=== PATIENT | female | born 1990 | race Caucasian/White ===

== ENCOUNTER 2019-07-04 11:46 | Emergency (ER) | payer OTHER ==
[2019-07-04 12:04] VITALS: BMI 36.3
--- NOTE | 2019-07-04 12:09 | PDOC ---
History of Present Illness - General Chief Complaint: Pain Stated Complaint: R/O ECTOPIC PREGANCY Time Seen by Provider: 07/04/19 12:09 - History of Present Illness Initial Comments: HPI: 28yo A0 currently five and a half weeks with no reported PMH sent by urgent care for possible ectopic . Patient reports mild lower abdominal discomfort and vaginal spotting. She was evaluated at an Urgent Care center yesterday and discharged before the radiology report returned. In the morning, patient was notified of the possibility of ectopic seen on ultrasound and instructed to present to the ED. Of note, she resides in [place] and is here to visit family. Never had complications with before. Denies urinary symptoms. No fevers, chills, chest pain, or shortness of breath. 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: in [place] ROS: Constitutional: no fever, no chills HEENT: no throat pain, no dysphagia Cardiovascular: no chest pain, no palpitations Respiratory: no cough, no shortness of breath Gastrointestinal: +abdominal pain, no vomiting Genitourinary: no dysuria, +vaginal bleeding Musculoskeletal: no myalgia, no arthralgia Skin: no rash, no itching Neurologic: no headache, no weakness PE: General: Awake, alert, and fully oriented, in no acute distress Head: No signs of trauma Eyes: EOMI, sclera anicteric ENT: Moist mucus membranes Neck: Normal ROM, supple Lungs: Lungs clear, Normal breath sounds Cardio: Regular rhythm, S1 and S2 present Abdomen: Soft, nontender. No guarding, no rebound, no masses Extremities: Normal range of motion, Distal pulses present SKIN: Warm, Dry, normal turgor Neurologic: Cranial nerves II through XII grossly intact. Normal speech Pelvic: External genitalia without erythema, exudate or discharge. Vaginal vault is with small amount of blood. Cervix is of normal color without lesion. The os is closed. Uterus is noted to be of appropriate size and nontender. No cervical motion tenderness is seen. No masses are palpated. The adnexa is with mild tenderness on the right. ED Course/MDM: DDX including but not limited to threatened , ectopic , subchorionic hemorrhage, UTI, cervical/vaginal lesion, thrombocytopenia Labs Patient declined pain medication 07/04/19 12:[address] Berg at [facility] Yesterday, B-hcg 646 Rh+ No definite intruterine gestation on US Thick cyst over the right ovary with surroudnding vascularity and may represent blood ectopic cannot be excluded 07/04/19 12:33 Received faxed reports from [facility] urgent care: "Pelvic sonogram with transvaginal imaging The uterus is anteverted measuring 8.4cm. IT is homogenous in echogenicity and no focal fibroids are appreciated. The endometrium is linear measuring 11mm. No intrauterine is identified at this time. There may be a small clot noted within the fundal aspect of the endometrium measuring 1cm The right ovary measures 4 x 2.2 x 3cm. There are small follicles noted. There is a thick-walled possible corpus luteal cyst measuring 2.5cm with surrounding vascularity. There is echogenic fluid around the ovary which may represent blood. The left ovary measures 2 x 2.5 x 2.2cm. Follicles are identified but no cysts or masses and no abnormal vascularilty is appreciated There is moderate amount of echogenic fluid surround the right ovary which is suggestive of hemorrhage Impression: There is no definite intrauterine gestation. there is a thick walled cyst identified exophytic from the right ovary with surrounding vascularilty and echogenic fluid which may represent blood. An ectopic cannot be excluded. There is a postive beta hcg value at this time of 646. Correlation with beta hcg values and close interval follow-up is suggested. " 07/04/19 13:01 CBC WBC 7.2 K/mm3 (4.0-10.0) 07/04/19 12:28 RBC 4.42 M/mm3 (3.60-5.2) 07/04/19 12:28 Hgb 12.8 GM/dL (10.7-15.3) 07/04/19 12:28 Hct 38.0 % (32.4-45.2) 07/04/19 12:28 MCV 85.9 fl (80-96) 07/04/19 12:28 MCH 28.9 pg (25.7-33.7) 07/04/19 12:28 MCHC 33.6 g/dl (32.0-36.0) 07/04/19 12:28 RDW 13.6 % (11.6-15.6) 07/04/19 12:28 Plt Count 263 K/MM3 (134-434) 07/04/19 12:28 MPV 9.5 fl (7.5-11.1) 07/04/19 12:28 Absolute Neuts (auto) 4.6 K/mm3 (1.5-8.0) 07/04/19 12:28 Neutrophils % 64.4 % (42.8-82.8) 07/04/19 12:28 Lymphocytes % 24.4 % (8-40) 07/04/19 12:28 Monocytes % 9.7 % (3.8-10.2) 07/04/19 12:28 Eosinophils % 1.0 % (0-4.5) 07/04/19 12:28 Basophils % 0.5 % (0-2.0) 07/04/19 12:28 Nucleated RBC % 0 % (0-0) 07/04/19 12:28 No leukocytosis Hgb normal CMP Sodium 139 mmol/L (136-145) 07/04/19 12:28 Potassium 3.9 mmol/L (3.5-5.1) 07/04/19 12:28 Chloride 106 mmol/L (98-107) 07/04/19 12:28 Carbon Dioxide 27 mmol/L (21-32) 07/04/19 12:28 Anion Gap 7 MMOL/L (8-16) L 07/04/19 12:28 BUN 8.9 mg/dL (7-18) 07/04/19 12:28 Creatinine 0.6 mg/dL (0.55-1.3) 07/04/19 12:28 Est GFR (CKD-EPI)AfAm 141.76 07/04/19 12:28 Est GFR (CKD-EPI)NonAf 122.31 07/04/19 12:28 Random Glucose 91 mg/dL (74-106) 07/04/19 12:28 Calcium 9.1 mg/dL (8.5-10.1) 07/04/19 12:28 Total Bilirubin 0.3 mg/dL (0.2-1) 07/04/19 12:28 AST 15 U/L (15-37) 07/04/19 12:28 ALT 22 U/L (13-61) 07/04/19 12:28 Alkaline Phosphatase 71 U/L (45-117) 07/04/19 12:28 Total Protein 7.8 g/dl (6.4-8.2) 07/04/19 12:28 Albumin 4.1 g/dl (3.4-5.0) 07/04/19 12:28 Beta HCG, Quant 547.7 mIU/ml 07/04/19 12:28 Electrolytes unremarkable Cr normal No transaminitis B-hcg is 547.7 which is lower than yesterday's value raising suspicion for ectopic vs miscarriage Pending US report 07/04/19 15:44 TVUS as reported by radiology: " EXAM#: TYPE/EXAM: RESULT: [id number] US/TRANSVAGINAL US PREG Transvaginal obstetrical ultrasound Clinical information given: ? ectopic on ultrasound, beta-hCG 646 The exam was performed utilizing transvaginal and transabdominal scanning. No prior imaging studies are available at this facility for direct comparison. An approximately 2.4 x 2 x 1.7 cm spherical structure is seen within the right adnexa interposed between the ovary and uterus suggestive of an ectopic . A small central fluid center is seen within this structure possibly representing a yolk sac. No embryonic pole is visualized. No definite intrauterine is seen. A 0.4 cm hypoechoic fluid structure containing internal debris is noted within the endometrial canal possibly representing a pseudogestational sac associated with ectopic and less likely a true gestational sac with internal debris ( given findings described within the right adnexa). The ovaries appear unremarkable demonstrating several subcentimeter follicles bilaterally. No Doppler evidence of ovarian torsion, sensitivity 70%. There is no definite free intraperitoneal fluid within the visualized lower pelvis. Impression: Probable right adnexal ectopic as noted above. Correlate with the results of prior imaging studies if available from a different facility. Reported By: Jonatan Aguero MD 07/04/19 1611 " 07/04/19 16:[address] Chase, who is continuous miner operator, 07/04/19 16:20 Dr. Chase evaluated the patient. Medical management is recommended. Per her size, patient to be given 100mg methotrexate; order verified with pharmacy Strict return precautions as initiation of treatment does not preclude ectopic rupture Per Dr. Chase's, B-hcg to be checked in 4 days at this ED (or with patient 's own provider in [place] if she heads home) to ensure it is appropriately downtrending. Dr. Chase recommended ED evaluation rather than clinic presentation 07/04/19 17:10 Patient given methotrexate Vital Signs Temperature 99 F 07/04/19 18:31 Pulse Rate 97 H 07/04/19 18:31 Respiratory Rate 18 07/04/19 18:31 Blood Pressure 111/68 07/04/19 18:31 O2 Sat by Pulse Oximetry (%) 97 07/04/19 18:31 VS remain stable Counseled tylenol/motrin for pain Patient opted to stay in town with family instead of returning home to [place] Given copies of all laboratory and imaging reports to have on hand in the event she decides to leave this area To follow up in the ED with repeat b-hcg value in four days (Sat/Sun) Given strict return precautions Stable for discharge Past History - Past Medical History Allergies/Adverse Reactions: Allergies Allergy/AdvReac Type Severity Reaction Status Date / Time No Known Allergies Allergy Verified 07/04/19 12:09 CVA: No COPD: No CHF: No DVT: No Diabetes: No - Immunization History Immunization Up to Date: Yes - Psycho Social/Smoking Cessation Hx Smoking History: Never smoked Hx Alcohol Use: No Drug/Substance Use Hx: No *Physical Exam - Vital Signs Last Vital Signs Temp Pulse Resp BP Pulse Ox 98.5 F 98 H 18 137/68 99 07/04/19 12:01 07/04/19 12:01 07/04/19 12:01 07/04/19 12:01 07/04/19 12:01 ED Treatment Course - LABORATORY CBC & Chemistry Diagram: 07/04/19 12:28 07/04/19 12:28 Discharge - Discharge Information Problems reviewed: Yes Clinical Impression/Diagnosis: Ectopic of right ovary Condition: Stable Disposition: HOME - Follow up/Referral - Patient Discharge Instructions Patient Printed Discharge Instructions: DI for Ectopic Additional Instructions: You came into the emergency department for abdominal pain and vaginal bleeding during . Your workup indicated an ectopic for which we consulted the on-call poultry husbandry worker. You were given a medication called methotrexate for treatment. Follow up in four days (Sat/Sun) for repeat b-hcg testing. If you cannot be seen by your provider, please return to the emergency department. Limit your activities. Refrain from heavy exertion. Pelvic rest is advised. Do not engage in sexual intercourse until you are cleared by your physician. You may use over the counter medications as needed for pain at home. 650-1000mg acetaminophen (Tylenol) or 600mg ibuprofen (Motrin or Advil) can be used every 6 -8 hours. If needed for continued pain, these medications may be alternated every 3-4 hours. For example, if you take ibuprofen at 9am, you may take acetaminophen at noon, ibuprofen at 3pm, etc. Return to the Emergency Department if you experience: -heavy bleeding -severe pain -lightheadedness -shortness of breath -high fever -any other concerning symptoms - Post Discharge Activity
[2019-07-04 12:45] LABS: BASO % 0.5 % (0-2.0); HEMOGLOBIN 12.8 GM/dL (10.7-15.3); LYMPH % 24.4 % (8-40); MCH 28.9 pg (25.7-33.7); MCHC 33.6 g/dl (32.0-36.0); MEAN CELL VOLUME 85.9 fl (80-96); MEAN PLT VOLUME 9.5 fl (7.5-11.1); MONO % 9.7 % (3.8-10.2); NEUT % 64.4 % (42.8-82.8); PLATELET COUNT 263 K/MM3 (134-434); RBC 4.42 M/mm3 (3.60-5.2); RDW 13.6 % (11.6-15.6); WHITE BLOOD COUNT 7.2 K/mm3 (4.0-10.0)
[2019-07-04 12:59] LABS: INR 0.98 (0.83-1.09); PROTHROMBIN TIME (PATIENT) 11.6 SEC (9.7-13.0)
[2019-07-04 13:01] LABS: ACTIVATED PTT 33.2 SECONDS (25.2-36.5)
--- NOTE | 2019-07-04 13:01 | PDOC ---
Attending Attestation - Resident Resident Name: Shelly Zarate - ED Attending Attestation I have performed the following: I have examined & evaluated the patient, The case was reviewed & discussed with the resident, I agree w/resident's findings & plan, Exceptions are as noted - HPI HPI: 07/04/19 16:18 28yo A0 currently five and a half weeks sent by urgent care for possible ectopic . Patient reports mild lower abdominal discomfort and vaginal spotting. - Physicial Exam PE: 07/04/19 18:07 Vitals: Triage Vital signs reviewed General Appearance: No acute distress, well nourished well developed, Head: Atraumatic, Abdomen no rebound no guarding no tenderness to palpation Extremities: Full range of motion to all extremities, no cyanosis, clubbing, or edema Skin: Warm and dry, no rashes or lesions, no rash, no petechiae Psych: Normal mood, normal affect - Medical Decision Making 07/04/19 18:07 28 years old sent to ED to rule out ectopic ultrasound demonstrates ectopic SPECIMEN ACCESSIONER consulted recommends methotrexate dose given by SPECIMEN ACCESSIONER Dr. Jaja Dugan patient is instructed to follow-up in 4 days for repeat Very strict ectopic precautions discussed with patient Findings, the need for follow-up and strict return instructions discussed with patient.
[2019-07-04 13:14] LABS: ALBUMIN 4.1 g/dl (3.4-5.0); BILIRUBIN,TOTAL 0.3 mg/dL (0.2-1); BLOOD UREA NITROGEN 8.9 mg/dL (7-18); CALCIUM 9.1 mg/dL (8.5-10.1); CREATININE 0.6 mg/dL (0.55-1.3); POTASSIUM 3.9 mmol/L (3.5-5.1); TOT PROT 7.8 g/dl (6.4-8.2)
[2019-07-04 13:42] LABS: EPI CELLS 5.3 /HPF (0-5/HPF); HYALINE CASTS 7 /lpf (0-8); PH,URINE 5.5 (5.0-8.0); URINE APPEARANCE CLOUDY; URINE BACTERIA 77.4 /hpf (NEGATIVE); URINE BILIRUBIN NEGATIVE (NEGATIVE); URINE COLOR YELLOW; URINE GLUCOSE (UA) NEGATIVE (NEGATIVE); URINE KETONE NEGATIVE (NEGATIVE); URINE LEUK ESTERASE TRACE (NEGATIVE); URINE NITRITE NEGATIVE (NEGATIVE); URINE PROTEIN NEGATIVE (NEGATIVE); URINE RBC 3 /hpf (0-4); URINE WBC 2 /hpf (0-5)
[2019-07-04] MEDS ORDERED: METHOTREXATE SODIUM/PF 25 MG/ML VIAL IM ONE (17:05)
--- NOTE | 2019-07-04 17:22 | CON.OBG ---
Consult Consult Specialty:: residential nurse Referred by:: Resident Tessa Bravo/ attending Claribel Amaya MD Reason for Consultation:: posible ectopic - History of Present Illness Chief Complaint: 28 yrs , LMP 05/24/19, 5.4 weeks gestation , was referred from [facility] for ectopic pregn . History of Present Illness: pt had pregn test done at home it was positive. she started experiencing spotting since 06/27/19 , bleeding increased 07/03/19 , cramps likie period sometimes & backache , hence she went to [facility] on 07/03/19 . she was sent home without knowing thr us report , she was called 12 AM to onform her she could be having ectopic pregn, she should go to ED . 07/03/19 [facility] hcg 646 imu. Sono report : Ut normal, no evidence iup , thick 1cm em . Rt ovary 4x2.2x3cm . small follicles thick walled possible CL Cyst with echogenic fluid measuring 2.5 cm, echogenic fluid around ovary .Left Ovary 2x2.5x2.2 cm . Possible ectopic suspected, no iupseen pt came to ED today Hcg report 547. sono report No iup. hypoecoic fluid 0.4cm in uterus , Rt adnexa between ovary & ut 2.4x 2x1.7 cm , with central fluid , possible rt adnexal ectopic pregn pt does not c/o nausea or vomiting or dizziness no c/o ac severe abd pain bleeding increase compare to last week no h/o std Pa MH : 28-30 days x 4-5 days , cramps spmetimes contraception: pt had stopped OC pill one month before Lmp - History Source History Provided By: Patient Limitations to Obtaining History: No Limitations - Past Medical History BEAD FILLER: No: Migraine Cardio/Vascular: No: HTN, Murmur Pulmonary: No: Asthma Gastrointestinal: Yes: Other (no nausea or vomiting ). No: GERD Hepatobiliary: Yes: Other (not known ) Renal/: No: UTI ...LMP: 05/24/19 ...: Yes ...: 3 ...Para: 2 (2 2013 & 2016 in [place] ) Heme/Onc: No: Anemia Infectious Disease: Yes: Other (declined) Psych: No: Addictions, Anxiety, Bipolar, Depression, Panic, Psychosis, Schizophrenia, Other Musculoskeletal: Yes: Other (declined) Rheumatology: Yes: Other (not known ) Endocrine: Yes: Other (h/o thyroid goitre , TFT normal, no meds ) - Past Surgical History Past Surgical History: Yes: Tonsillectomy Additional Surgical History: extraction of wisdom teeth - Alcohol/Substance Use Hx Alcohol Use: No History of Substance Use: reports: None - Smoking History Smoking history: Never smoked Home Medications - Allergies Allergies/Adverse Reactions: Allergies Allergy/AdvReac Type Severity Reaction Status Date / Time No Known Allergies Allergy Verified 07/04/19 12:09 Physical Exam-EDUCATION MANAGERS Vital Signs: Vital Signs Temperature 98.5 F 07/04/19 12:01 Pulse Rate 98 H 07/04/19 12:01 Respiratory Rate 18 07/04/19 12:01 Blood Pressure 137/68 07/04/19 12:01 O2 Sat by Pulse Oximetry (%) 99 07/04/19 12:01 Constitutional: Yes: Well Nourished, No Distress, Anxious, Other (205 lbwt ht 5 '3" BSA 1.95m) Eyes: Yes: WNL HENT: Yes: WNL Neck: Yes: WNL Cardiovascular: Yes: Other (not examoned) Respiratory: Yes: Other (not examined) Gastrointestinal: Yes: WNL, Normal Bowel Sounds, Soft. No: Tenderness, Epigastrium, Tenderness, Rebound ...Rectal Exam: Yes: Deferred Renal/: Yes: WNL. No: CVA Tenderness - Left, CVA Tenderness - Right Pelvis: No: Mass, Tenderness External Genitalia: Yes: Normal Vaginal Exam: Yes: Normal, Bleeding (moderate) Cervix: Yes: Normal, Bleeding. No: Cerv Motion Tenderness Uterus: Yes: Normal, Anteverted. No: Tender Adnexa: Normal: Bilateral, Not Palpable: Bilateral (not tender) Breast(s): Yes: WNL Musculoskeletal: Yes: WNL Extremities: Yes: WNL. No: Calf Tenderness Edema: No Integumentary: Yes: WNL Neurological: Yes: WNL, Alert, Oriented ...Motor Strength: WNL Psychiatric: Yes: WNL Labs: CBC, BMP 07/04/19 12:28 07/04/19 12:28 Laboratory Tests 12/31/19 12/31/19 12:28 13:01 Beta HCG, Quant 547.7 Urine Color Yellow Urine Appearance Cloudy Urine pH 5.5 Ur Specific [place] 1.033 Urine Protein Negative Urine Glucose (UA) Negative Urine Ketones Negative Urine Blood 3+ H Urine Nitrite Negative Urine Bilirubin Negative Urine Urobilinogen 1.0 Ur Leukocyte Esterase Trace Urine WBC (Auto) 2 Urine RBC (Auto) 3 Urine Casts (Auto) 7 U Epithel Cells (Auto) 5.3 Urine Bacteria (Auto) 77.4 Laboratory Tests 07/04/19 07/04/19 12:28 12:28 PT with INR 11.60 INR 0.98 PTT (Actin FS) 33.2 AST 15 ALT 22 Problem List - Problems (1) Ectopic , tubal Code(s): O00.109 - UNSPECIFIED TUBAL WITHOUT INTRAUTERINE Qualifiers: Laterality: right Assessment/Plan 28 yrs , 5.4 weeks gestation , hcg 547 miu, US done at [facility] & at [facility] radiology suspects Rt Adnexal ( ectopic ) pregn .no iup, no free fluid since hcg numbers are low medical management recommended versus surgical management r/b/a told . close follow up necessary informed .Stil possibiliy of rupture ectopic is there if heavy bleeding, ac pain accompanied with dizziness report to ER bleeding will continue until bhcg neg Rx Methotrexate 50 mg/m Calculate dose 100mg hcg 48 hrs hcg may go up f/u HCG after 4 days may or may not need 2nd dose depending upon hcg if plato or increase
[2019-07-04 18:42] VITALS: BP 111/68; PULSE 97; TEMP 99
== END 2019-07-04 18:42 | disposition home or self-care (01) ==
LOC: JER 11:46
PROC: 3E0233Z Introduction of Anti-inflammatory into Muscle, Percutaneous Approach (ICD-10-PCS; principal; 2019-07-04)
DX: O26.891 Other specified pregnancy related conditions, first trimester (principal); Z3A.01 Less than 8 weeks gestation of pregnancy
CPT/HCPCS: 36415; 76817-TC; 80053; 81003; 84702; 85025; 85610; 85730; 86850; 86900; 86901; 87086; 99283-25; J9260